=== PATIENT | female | born 1955 | race Caucasian/White ===

== ENCOUNTER 2022-07-27 09:10 | Outpatient (CLI) | payer OTHER, SELFPAY ==
--- NOTE | 2022-07-27 09:57 | W.ANESCHARGE ---
Anesthesia Charges Start Date/Time Anesthesia Start Date: 07/27/22 Anesthesia Start Time: 09:50 Stop Date/Time Anesthesia Stop Date: 07/27/22 Anesthesia Stop Time: 10:15
--- NOTE | 2022-07-27 10:16 | W.ANESCHARGE ---
Anesthesia Charges Start Date/Time Anesthesia Start Date: 07/27/22 Anesthesia Start Time: 09:50 Stop Date/Time Anesthesia Stop Date: 07/27/22 Anesthesia Stop Time: 10:15
== END 2022-07-27 09:11 | disposition home or self-care (01) ==
LOC: OP CLINIC 09:10
PROVIDERS: PCP Physician Assistant; Visit Provider Internal Medicine
DX: Z12.11 Encounter for screening for malignant neoplasm of colon (principal); Z80.0 Family history of malignant neoplasm of digestive organs
CPT/HCPCS: 00811; 00812; 45378; J2704